=== PATIENT | female | born 1980 | race Caucasian/White ===

== ENCOUNTER 2016-10-10 11:09 | Emergency (ER) | payer SELFPAY ==
--- NOTE | 2016-10-10 13:05 | UC ---
Dental HPI - HPI Summary HPI Summary: TWO DAYS OF RIGHT UPPER DENTAL PAIN WITH FACIAL SWELLING. DOES NOT HAVE DENTIST CURRENTLY. 1/2 PPD SMOKER. NO FEVER. - History of Current Complaint Chief Complaint: UCDentalProblem Stated Complaint: TOOTH COMPLAINT Time Seen by Provider: 10/10/16 12:45 Hx Obtained From: Patient, Family/Vice President Integrated Hx Last Menstrual Period: 09/20/16 Onset/Duration: Sudden Onset, Lasting Days, Still Present Severity: Severe Aggravating: Chewing Related History: Previous Dental Care on Same Tooth, Swelling - Allergies/Home Medications Allergies/Adverse Reactions: Allergies Allergy/AdvReac Type Severity Reaction Status Date / Time Azithromycin [From Zithromax] Allergy Vomiting Verified 10/10/16 11:38 Moxifloxacin [From Avelox] Allergy Rash Verified 10/10/16 11:38 Penicillins Allergy Swelling Verified 10/10/16 11:38 Of Face,Lips,& Throat Home Medications: Home Medications Ascorbic Acid TAB* [Vitamin C TAB*] 500 mg PO DAILY 10/10/16 [History Confirmed 10/10/16] Cholecalciferol [Vitamin D] 1,000 unit PO DAILY 10/10/16 [History Confirmed ] Gabapentin CAP(*) [Neurontin 100 mg CAP(*)] 100 mg PO TID 10/10/16 [History Confirmed 10/10/16] Glycopyrrolate TAB(NF) [Robinul TAB(NF)] 1 mg PO BID 10/10/16 [History Confirmed 10/10/16] Hydrochlorothiazide TAB* [Hydrodiuril TAB*] 25 mg PO DAILY 10/10/16 [History Confirmed 10/10/16] Ibuprofen TAB* [Motrin TAB* 800 MG] 800 mg PO Q6H PRN 10/10/16 [History Confirmed 10/10/16] LORazepam TAB(*) [Ativan TAB(*)] 0.5 mg PO TID PRN 10/10/16 [History Confirmed 10/10/16] Metoprolol Tartrate TAB* [Lopressor TAB*] 25 mg PO BID 10/10/16 [History Confirmed 10/10/16] Zinc 25 mg PO DAILY 10/10/16 [History Confirmed 10/10/16] PMH/Surg Hx/FS Hx/Imm Hx Previously Healthy: Yes Cardiovascular History Of: Reports: Cardiac Disorders - tachy, Hypertension - Surgical History Surgical History: Yes Surgery Procedure, Year, and Place: tubal ligation. x 2. dental - Family History Known Family History: Negative: Respiratory Disease - Social History Occupation: Employed Full-time Lives: With Family Alcohol Use: None Substance Use Type: None Smoking Status (MU): Heavy Every Day Tobacco Smoker Type: Cigarettes Amount Used/How Often: 3/4 pack daily Cessation Counseling: Patient Advised to Stop - Immunization History Most Recent Influenza Vaccination: not this season Review of Systems Constitutional: Negative Skin: Negative Eyes: Negative ENT: Dental Pain Respiratory: Negative Cardiovascular: Negative Gastrointestinal: Negative Genitourinary: Negative Motor: Negative Neurovascular: Negative Musculoskeletal: Negative Neurological: Negative Psychological: Negative All Other Systems Reviewed And Are Negative: Yes Physical Exam Triage Information Reviewed: Yes Appearance: Well-Appearing, No Pain Distress, Well-Nourished Vital Signs: Initial Vital Signs Temp 97.9 F 10/10/16 11:42 Pulse 71 10/10/16 11:42 Resp 18 10/10/16 11:42 BP 107/68 10/10/16 11:42 Pulse Ox 100 10/10/16 11:42 Vital Signs Reviewed: Yes Eye Exam: Normal Eyes: Positive: Conjunctiva Clear ENT Exam: Normal ENT: Positive: Normal ENT inspection, Hearing grossly normal, Pharynx normal, TMs normal Dental: Positive: Percussion Tenderness @ - 4,5,6,7,, Abscess @ - 4,5,6, Other: - RIGHT MAXILLARY SINUS SWELLING Neck exam: Normal Neck: Positive: Supple, Nontender, No Lymphadenopathy Respiratory Exam: Normal Respiratory: Positive: Chest non-tender, Lungs clear, Normal breath sounds, No respiratory distress, No accessory muscle use Cardiovascular Exam: Normal Cardiovascular: Positive: RRR, No Murmur Abdominal Exam: Normal Abdomen Description: Positive: Nontender, No Organomegaly Musculoskeletal Exam: Normal Neurological Exam: Normal Psychological Exam: Normal Skin Exam: Normal Dental Complaint Course/Dx - Differential Dx/Diagnosis Differential Diagnosis/Dx: Dental Abscess, Odontogenic Pain, Peritonsillar Abcess, Tonsillitis Provider Diagnoses: ODONTOGENIC PAIN. GINGIVAL CELLULITIS #'S: 4,5,6 POSSIBLE ABSCESS Discharge - Discharge Plan Condition: Stable Disposition: HOME Prescriptions: Clindamycin Cap(NF) [Cleocin 300 mg Cap(NF)] 300 mg PO TID #30 cap HYDROcodone/ACETAMIN 5-325 MG* [[place] 5-325 TAB*] 1 tab PO Q8H PRN #12 tab MDD three tabs PRN Reason: Pain Patient Education Materials: Dental Abscess (ED), Toothache (ED) Referrals: Justyn WIGGINS,[facility] [Primary Care Provider] - Additional Instructions: DENTAL REFERRAL SHEET GIVEN Images Dental: 1 - TENDER SWOLLEN HERE
== END 2016-10-10 13:10 | disposition home or self-care (01) ==
LOC: UCCORT 11:09
DX: K12.2 Cellulitis and abscess of mouth (principal); K08.89 Other specified disorders of teeth and supporting structures; Z88.1 Allergy status to other antibiotic agents; Z88.0 Allergy status to penicillin; F17.210 Nicotine dependence, cigarettes, uncomplicated
CPT/HCPCS: 99202; G0463

== ENCOUNTER 2018-09-17 15:05 | Emergency (ER) | payer SELFPAY ==
[2018-09-17 16:00] VITALS: BP 122/81
--- NOTE | 2018-09-17 16:12 | UC ---
UC General HPI - HPI Summary HPI Summary: PAIN TO L UPPER ABCK TOOTH THIS AM. HX BAD TEETH. PARTIAL ATTACHES TO THIS TOOTH. NO RELIEF WITH NSAIDS. - History of Current Complaint Chief Complaint: UCDentalProblem Stated Complaint: DENTAL CONCERN Time Seen by Provider: 09/17/18 15:51 Hx Obtained From: Patient Hx Last Menstrual Period: 08/14/18 Timing: Constant Pain Intensity: 8 Associated Signs & Symptoms: Negative: Edema, Fever - Allergy/Home Medications Allergies/Adverse Reactions: Allergies Allergy/AdvReac Type Severity Reaction Status Date / Time Penicillins Allergy Severe swelling, Verified 09/17/18 16:01 face, lips moxifloxacin [From Avelox] Allergy Intermediate Rash Verified 09/17/18 16:01 azithromycin [From Zithromax] AdvReac Vomiting Verified 09/17/18 16:01 PMH/Surg Hx/FS Hx/Imm Hx Cardiovascular History: Hypertension - Surgical History Surgical History: Yes Surgery Procedure, Year, and Place: tubal ligation. x 2. dental - Family History Known Family History: Negative: Respiratory Disease - Social History Alcohol Use: Occasionally Substance Use Type: None Smoking Status (MU): Heavy Every Day Tobacco Smoker Type: Cigarettes Amount Used/How Often: 1 ppd - Immunization History Most Recent Influenza Vaccination: not this season Review of Systems All Other Systems Reviewed And Are Negative: Yes Constitutional: Positive: Negative Skin: Positive: Negative Eyes: Positive: Negative ENT: Positive: Dental Pain Respiratory: Positive: Negative Cardiovascular: Positive: Negative Gastrointestinal: Positive: Negative Genitourinary: Positive: Negative Motor: Positive: Negative Neurovascular: Positive: Negative Musculoskeletal: Positive: Negative Neurological: Positive: Negative Psychological: Positive: Negative Physical Exam Triage Information Reviewed: Yes Appearance: Well-Appearing Vital Signs: Initial Vital Signs Temp 97.6 F 09/17/18 15:54 Pulse 68 09/17/18 15:54 Resp 18 09/17/18 15:54 BP 122/81 09/17/18 15:54 Pulse Ox 100 09/17/18 15:54 Vital Signs Reviewed: Yes Eyes: Positive: Conjunctiva Clear ENT: Positive: Pharynx normal, TMs normal. Negative: Nasal congestion, Nasal drainage Dental: Positive: Other: - UPPER PARTIAL. L UPPER BACK TOOTH WITH RECEEDING GUM / DECAY AND TOOTH IS VERY TENDER. NO FLUCTUANCE. Neck: Positive: Supple, Nontender, No Lymphadenopathy Respiratory: Positive: Lungs clear, Normal breath sounds Cardiovascular: Positive: RRR, No Murmur Abdomen Description: Positive: Nontender, No Organomegaly, Soft Bowel Sounds: Positive: Present Musculoskeletal: Positive: ROM Intact Neurological: Positive: Alert Psychological: Positive: Age Appropriate Behavior Skin Exam: Normal Course/Dx - Course Course Of Treatment: ISTOP=NO CONTROLLED SUBSTANCES. WILL TX FOR PAIN AND INFECTION. - Differential Dx - Multi-Symptom Differential Diagnoses: Other - DENTAL INFECTION, DECAY AND ABSCESS - Diagnoses Provider Diagnosis: Pain, dental Discharge - Sign-Out/Discharge Documenting (check all that apply): Patient Departure All imaging exams completed and their final reports reviewed: No Studies - Discharge Plan Condition: Stable Disposition: HOME Prescriptions: Clindamycin Cap(NF) [Clindamycin Cap 300 mg Cap(NF)] 300 mg PO TID 10 Days #30 cap HYDROcodone/ACETAMIN 5-325 MG* [[place] 5-325 TAB*] 1 tab PO Q6H PRN #10 tab MDD 4 PRN Reason: Pain (Dental) Patient Education Materials: Toothache (ED) Referrals: No Primary Care Phys,NOPCP [Primary Care Provider] - Additional Instructions: FOLLOW UP WITH YOUR DENTIST IN [place] SOON POSSIBLE - Billing Disposition and Condition Condition: STABLE Disposition: Home - Attestation Statements Provider Attestation: I was available for consult. This patient was seen by the EMILE. The patient was not presented to, seen by, or examined by me. -Trey
== END 2018-09-17 16:36 | disposition home or self-care (01) ==
LOC: UCCORT 15:05
DX: K08.89 Other specified disorders of teeth and supporting structures (principal); Z88.0 Allergy status to penicillin; Z88.1 Allergy status to other antibiotic agents; I10 Essential (primary) hypertension
CPT/HCPCS: 99212; G0463